=== PATIENT | male | born 1990 | race Caucasian/White ===

== ENCOUNTER 2017-11-19 17:00 | Outpatient (CLI) | payer BC | END 2017-11-19 17:01 | disposition home or self-care (01) | LOC: SLEEPLAB 17:00 | PROVIDERS: ATTEND Family Medicine | DX: G47.33 Obstructive sleep apnea (adult) (pediatric) (principal); R53.83 Other fatigue; R51 Headache; R06.83 Snoring; Z68.25 Body mass index [BMI] 25.0-25.9, adult | CPT/HCPCS: 95806 ==

== ENCOUNTER 2018-03-03 05:49 | Day surgery (SDC) | payer BC ==
[2018-03-02 15:22] VITALS: BMI 26.4
[2018-03-03] MEDS ORDERED: Oxymetazoline HCl 0.05% ( 15 ML ) ONE ×3 (06:33→10:48)
[2018-03-03] MEDS ORDERED: Bacitracin Zinc Ointment 30 gm TUBE ONE (07:53)
[2018-03-03] MEDS ORDERED: Lidocaine 1% w/Epinephrine 1:100K 30 ML VIAL ONE (07:53)
[2018-03-03] MEDS ORDERED: Fentanyl 100 MCG/2 ML VIAL ONE (08:08)
[2018-03-03] MEDS ORDERED: Midazolam HCl 2 mg/2 ml Vial ONE (09:03)
[2018-03-03] MEDS ORDERED: Ondansetron HCl/PF 4 MG/2 ML Vial ONE (13:35)
[2018-03-03] MEDS ORDERED: Lidocaine 1% PF 5 ML VIAL ONE (13:35)
[2018-03-03] MEDS ORDERED: Succinylcholine Chloride 20 MG/ML 10 ml SYRINGE FS ONE (13:35)
[2018-03-03] MEDS ORDERED: Dexamethasone 20 MG/5 ML VIAL ONE (13:35)
[2018-03-03] MEDS ORDERED: PROPOFOL 200 MG/20 ML VIAL ONE (13:35)
--- NOTE | 2018-03-04 12:44 | OP ---
DATE OF PROCEDURE: 03/05/2018 PREOPERATIVE DIAGNOSES: 1. Chronic rhinosinusitis. 2. Bilateral middle turbinate river bullosa. 3. Nasal septal deviation. 4. Bilateral inferior turbinate hypertrophy. 5. Nasal obstruction. POSTOPERATIVE DIAGNOSES: 1. Chronic rhinosinusitis. 2. Bilateral middle turbinate river bullosa. 3. Nasal septal deviation. 4. Bilateral inferior turbinate hypertrophy. 5. Nasal obstruction. PROCEDURES: 1. Bilateral endoscopic sinus surgery, total ethmoidectomies. 2. Bilateral endoscopic sinus surgery, maxillary antrostomies. 3. Bilateral endoscopic sinus surgery, frontal sinusotomies. 4. Bilateral endoscopic sinus surgery, sphenoidotomies. 5. Nasal septoplasty. 6. Bilateral inferior turbinate submucosal resection. SURGEON: Aniket Ramos M.D. ESTIMATED BLOOD LOSS: 50 mL. COMPLICATIONS: None. ANESTHESIA: GETA. PROCEDURE IN DETAIL: Patient was taken to the operating room and placed supine on the table. General endotracheal anesthesia was obtained by the Anesthesia staff. Tube was secured in the left lower lip. Patient was then placed in the beach chair position, and Afrin pledgets were placed in the nasal cavity. Injections of 1% lidocaine with 1:100,000 epinephrine were made into the nasal septum as well as the inferior turbinates. Patient was then prepped and draped in standard surgical fashion for nasal surgery. Following this, the Afrin pledgets were removed. A Luther incision was made on the left nasal septum. Submucoperichondrial dissection was performed. The deviated portions of the septum included portions of the cartilage and the bony septum. These isolated areas were removed using three cutting rongeurs. There was noted to be a large dorsal and caudal strut, left intact for support of the nose. The mucoperichondrial flaps were then reapproximated using a 4-0 gut stitch. Any straight pieces of cartilage were crushed prior to this and placed between the mucoperichondrial flaps. Following this, the inferior turbinates were then punctured with a submucosal coblation wand, and submucosal coblations were performed of multiple areas of the inferior portion of the anterior inferior turbinate. Please note that the submucosal microdebrider was used to submucosally resect the anterior and inferi or portions of the inferior turbinates bilaterally. Following this, the inferior turbinates were lat erally outfractured with a [place] elevator. Following this, the 0 degree scope was advanced in the mi ddle meatus. The large middle turbinate river bullosas were identified and vertically incised in th e middle of the turbinate using a sickle blade. The lateral portion of the river bullosa and middle turbinate was then resected using the straight microdebrider and the straight Blakesley forceps. Fo llowing this, the uncinate process was identified bilaterally and was anteriorly fractured using the ball-ended probe. Following this, the uncinate was then removed bilaterally using the straight micro debrider and the upbiting Blakesley forceps. Following this, the maxillary sinus ostia was identifie d bilaterally and was gently widened using the curved microdebrider bilaterally. Following this, the ethmoidal bulla was identified and was punctured on its medial and inferior aspect bilaterally and w as removed using the microdebrider and the upbiting Blakesley forceps. Following this, the grand farrar daniel was identified bilaterally and was punctured into the posterior ethmoidal cells. Working from p osterior to anterior, the ethmoidal cells were opened using the microdebrider. Following this, the s phenoid sinuses were approached through the previous ethmoidectomies where the attachment of the supe rior turbinate was identified as it made its attachment to the posterior nasal wall. Staying just me dial and inferior to this sphenoidotomies were created bilaterally and were widened medially and infe riorly using the microdebrider. Following this, the 45-degree endoscope and the curved microdebrider were used to further visualize the frontal recess area which was then opened using the curved microd ebrider. The frontal sinus ostia were then visualized and was widened using the microdebrider koki cox. Following this, the nasal cavity was irrigated, Mirapex were placed . Smiht splints were pl aced and secured. The patient tolerated the procedure well.
== END 2018-03-03 12:35 | disposition home or self-care (01) ==
LOC: SDC 05:49
PROVIDERS: ATTEND Otolaryngology Plastic Surgery within the Head & Neck
DX: J32.8 Other chronic sinusitis (principal); G47.33 Obstructive sleep apnea (adult) (pediatric); J34.2 Deviated nasal septum; J34.3 Hypertrophy of nasal turbinates
CPT/HCPCS: J1100; J2001; J2250; J2405; J2704; J3010